=== PATIENT | male | born 1965 | race Caucasian/White ===

== ENCOUNTER 2020-09-10 15:21 | Emergency (ER) | payer SELFPAY ==
[~2020-09-10] VITALS: Ht 182.9 cm; Wt 90.7 kg
[2020-09-10] MEDS ORDERED: Thiamine HCl 100mg/ml 2 ml Inj IM STA (15:23)
--- NOTE | 2020-09-10 15:30 | NUR ---
ED Nurse Note: pt brought in to ER by ambulance from home due to possible ETOH and OD Benadryl. pt aao x0 and nonverbal but ta Addendum: 09/10/20 at 1553 by [email or web address] ED Nurse Note: pt brought in to ER by ambulance from home due to possible ETOH and OD Benadryl. pt aao x0 and nonverbal but open eyes and tracing. pt arrived with undigested food vomit around his mouth. vs stable and no SOB noted. iv and FC inserted. pt is lying down on Rt side to prevent possible aspiration. no skin issue noted. pt is in gown and on patient monitor.
--- NOTE | 2020-09-10 15:35 | Emergency Room Report ---
History of Present Illness General Chief Complaint: Alcohol Intoxication Source: EMS Present Illness HPI Family called paramedics because the patient was altered. He allegedly had been taking a lot of alcohol. There are some possibility of ingesting Benadryl also. There is no known history of suicidal ideation. Accu-Chek in the field was 350. Patient vomited on the way to the emergency department. No other history is available at this time. Allergies: Coded Allergies: UNABLE TO ASSESS (Unverified , 09/10/20) COVID-19 Screening Contact w/high risk pt: No Experienced COVID-19 symptoms?: No COVID-19 Testing performed INTEGRATION DIRECTOR: No Patient History Past Medical History: see triage record Social History: Reports: alcohol use Social History Narrative Has family, apparently [place]-speaking Reviewed Nursing Documentation: PMH: Agreed; PSxH: Agreed Review of Systems All Other Systems: limited Physical Exam Vital Signs Date Time Temp Pulse Resp B/P (MAP) Pulse Ox O2 Delivery O2 Flow Rate FiO2 09/10/20 15:10 98.1 95 20 151/96 (114) 94 Room Air Sp02 EP Interpretation: reviewed, abnormal - Interpreted as slightly low by me General Appearance: Stupor Eyes: bilateral eye PERRL, bilateral eye abnormal EOM - Nystagmus, bilateral eye Scleral Injection ENT: moist mucus membranes, other - Gag present Neck: supple Respiratory: lungs clear, normal breath sounds Cardiovascular #1: regular rate, rhythm, no edema Cardiovascular #2: 2+ radial (R) Gastrointestinal: non tender, soft, decreased bowel sounds Musculoskeletal: decreased range of motion - Moving all fours Neurologic: sensory intact, responsive - To pain Psychiatric: other - Stupor Skin: no rash, warm/dry Medical Decision Making Diagnostic Impression: Primary Impression: Acute alcoholic intoxication Qualified Codes: F10.929 - Alcohol use, unspecified with intoxication, unspecified ER Course Patient with altered mentation and history of alcohol consumption. Gag is present and therefore intubation is not needed at this time. We need to ascertain with patient aspirated. The patient needs to be monitored until he is sober and evaluated at that time regarding intent. Patient evaluated with EKG, chest x-ray and labs. Patient treated with IV hydration and IM thiamine. EKG NSR, normal EKG. CXR poor inspiration. Labs significant for BAL 200. Patient more responsive. 1630 Patient more awake and pulled IV. Wants bennett out. Still not answering questions. 1945 Patient reports to RN that there was no suicidal intent. Patient reluctant to give more history at this time. Patient given advice to follow-up with alcoholics anonymous. Also advised to follow-up with his own private physician. Patient improved and stable for outpatient observation and treatment. Laboratory Tests Test 09/10/20 15:35 White Blood Count 13.4 K/UL (4.8-10.8) H Red Blood Count 5.76 M/UL (4.70-6.10) Hemoglobin 16.3 G/DL (14.2-18.0) Hematocrit 49.9 % (42.0-52.0) Mean Corpuscular Volume 87 FL (80-99) Mean Corpuscular Hemoglobin 28.3 PG (27.0-31.0) Mean Corpuscular Hemoglobin Concent 32.7 G/DL (32.0-36.0) Red Cell Distribution Width 12.1 % (11.6-14.8) Platelet Count 252 K/UL (150-450) Mean Platelet Volume 8.1 FL (6.5-10.1) Neutrophils (%) (Auto) 73.0 % (45.0-75.0) Lymphocytes (%) (Auto) 21.0 % (20.0-45.0) Monocytes (%) (Auto) 3.8 % (1.0-10.0) Eosinophils (%) (Auto) 1.3 % (0.0-3.0) Basophils (%) (Auto) 1.0 % (0.0-2.0) Urine Color Pale yellow Urine Appearance Clear Urine pH 5 (4.5-8.0) Urine Specific [place] 1.010 (1.005-1.035) Urine Protein 2+ (NEGATIVE) H Urine Glucose (UA) 4+ (NEGATIVE) H Urine Ketones 3+ (NEGATIVE) H Urine Blood 1+ (NEGATIVE) H Urine Nitrite Negative (NEGATIVE) Urine Bilirubin Negative (NEGATIVE) Urine Urobilinogen Normal MG/DL (0.0-1.0) Urine Leukocyte Esterase Negative (NEGATIVE) Urine RBC 2-4 /HPF (0 - 0) H Urine WBC 0 /HPF (0 - 0) Urine Squamous Epithelial Cells Occasional /LPF Urine Bacteria Occasional /HPF (NONE) Sodium Level 140 MMOL/L (136-145) Potassium Level 3.7 MMOL/L (3.5-5.1) Chloride Level 100 MMOL/L (98-107) Carbon Dioxide Level 23 MMOL/L (21-32) Anion Gap 17 mmol/L (5-15) H Blood Urea Nitrogen 10 mg/dL (7-18) Creatinine 0.9 MG/DL (0.55-1.30) Estimated Glomerular Filtration Rate > 60 mL/min (>60) Glucose Level 290 MG/DL (74-106) H Calcium Level 8.9 MG/DL (8.5-10.1) Total Bilirubin 0.4 MG/DL (0.2-1.0) Aspartate Amino Transferase (AST) 18 U/L (15-37) Alanine Aminotransferase (ALT) 32 U/L (12-78) Alkaline Phosphatase 101 U/L (46-116) Total Creatine Kinase 102 U/L (26-308) Troponin I 0.000 ng/mL (0.000-0.056) Total Protein 8.0 G/DL (6.4-8.2) Albumin 4.3 G/DL (3.4-5.0) Globulin 3.7 g/dL Albumin/Globulin Ratio 1.2 (1.0-2.7) Salicylates Level 1.5 ug/mL (2.8-20) L Urine Opiates Screen Negative (NEGATIVE) Acetaminophen Level < 2 MCG/ML (10-30) L Urine Barbiturates Screen Negative (NEGATIVE) Phencyclidine (PCP) Screen Negative (NEGATIVE) Urine Amphetamines Screen Negative (NEGATIVE) Urine Benzodiazepines Screen Negative (NEGATIVE) Urine Cocaine Screen Negative (NEGATIVE) Urine Marijuana (THC) Screen Negative (NEGATIVE) Serum Alcohol 200 mg/dL EKG Diagnostic Results Rate: normal Rhythm: NSR ST Segments: no acute changes Rhythm Strip Diag. Results EP Interpretation: yes Rhythm: NSR, no PVC's, no ectopy Chest X-Ray Diagnostic Results Chest X-Ray Diagnostic Results : Chest X-Ray Ordered: Yes # of Views/Limited/Complete: 1 View Indication: Other EP Interpretation: Yes Interpretation: no consolidation, no effusion, no pneumothorax, other - Poor inspiration Impression: No acute disease Electronically Signed by: Electronically signed by Toribio Dorado MD Last Vital Signs Date Time Temp Pulse Resp B/P (MAP) Pulse Ox O2 Delivery O2 Flow Rate FiO2 09/10/20 21:22 98.0 80 16 142/76 99 Room Air Status: improved Disposition: HOME, SELF-CARE Condition: Improved Toribio Dorado MD Sep 10, 2020 15:35
[2020-09-10 15:40] VITALS: BP 144/87
[2020-09-10 15:56] LABS: APPEARANCE,URINE CLEAR; BILIRUBIN, URINE NEGATIVE (NEGATIVE); COLOR,URINE PALE YELLOW; GLUCOSE, URINE (UA) 4+ (NEGATIVE); KETONES,URINE 3+ (NEGATIVE); LEUKOCYTE ESTERASE ,URINE NEGATIVE (NEGATIVE); NITRITE,URINE NEGATIVE (NEGATIVE); PH,URINE 5 (4.5-8.0); PROTEIN,URINE 2+ (NEGATIVE); UROBILINOGEN,URINE NORMAL MG/DL (0.0-1.0)
--- NOTE | 2020-09-10 16:01 | NUR ---
ED Nurse Note: changed pt's position to Rt side.
[2020-09-10 16:02] LABS: ANION GAP 17 mmol/L (5-15); BLOOD UREA NITROGEN 10 mg/dL (7-18); CALCIUM 8.9 MG/DL (8.5-10.1); CARBON DIOXIDE 23 MMOL/L (21-32); CHLORIDE 100 MMOL/L (98-107); CREATININE 0.9 MG/DL (0.55-1.30); POTASSIUM 3.7 MMOL/L (3.5-5.1); SODIUM 140 MMOL/L (136-145)
[2020-09-10 16:06] LABS: ALANINE AMINOTRANSFERASE 32 U/L (12-78); ALBUMIN 4.3 G/DL (3.4-5.0); ALBUMIN/GLOBULIN RATIO 1.2 (1.0-2.7); ALKALINE PHOSPHATASE 101 U/L (46-116); ASPARTATE AMINO TRANSFERASE 18 U/L (15-37); BILIRUBIN,TOTAL 0.4 MG/DL (0.2-1.0); CREATINE KINASE 102 U/L (26-308)
[2020-09-10 16:08] LABS: EOSINOPHILS % (AUTO) 1.3 % (0.0-3.0); HEMATOCRIT 49.9 % (42.0-52.0); HEMOGLOBIN 16.3 G/DL (14.2-18.0); MEAN CORPUSCULAR VOLUME 87 FL (80-99); MONOCYTES % (AUTO) 3.8 % (1.0-10.0); PLATELET COUNT 252 K/UL (150-450); RED BLOOD COUNT 5.76 M/UL (4.70-6.10); RED CELL DISTRIBUTION WIDTH 12.1 % (11.6-14.8); WHITE BLOOD COUNT 13.4 K/UL (4.8-10.8)
--- NOTE | 2020-09-10 16:34 | NUR ---
ED Nurse Note: x-ray at bedside.
--- NOTE | 2020-09-10 17:06 | Diagnostic Imaging Report ---
Indication: Shortness of breath Technique: One view of the chest Comparison: none Findings: Lungs and pleural spaces are clear. Heart size is normal. Impression: No acute process
[2020-09-10 17:40] VITALS: BP 113/67
--- NOTE | 2020-09-10 18:08 | NUR ---
ED Nurse Note: pt sleeping on Rt later side soundly in bed.
--- NOTE | 2020-09-10 19:02 | NUR ---
HAND-OFF: Report given to LANE Rodriguez. no orders to carry. awaiting for pt to be sober.
--- NOTE | 2020-09-10 19:16 | NUR ---
ED Nurse Note: Received report from Manny Higginbotham, pt currently resting with no complaints at this time. No distress noted. Assumed care of pt.
[2020-09-10 19:17] VITALS: BP 145/81
--- NOTE | 2020-09-10 19:40 | NUR ---
ED Nurse Note: Pt awake and pulling off monitor and blood pressure cuff. Pt also pulled out IV. Have attempted to stop him from pulling these things, but pt is not listening. Advised Dr. Dorado. Dr. Dorado reports it is fine the IV is out, and he will see pt shortly. Pt reports he is cold and warm blankets have been provided.
--- NOTE | 2020-09-10 19:52 | NUR ---
ED Nurse Note: Pt reports he has to pee, advised pt he has urinary catheter in. Pt still complaining. Dr. Daveaid to remove catheter. Catheter removed, pt attempting to use urinal. Pt tolerated procedure well.
--- NOTE | 2020-09-10 20:39 | NUR ---
ED Nurse Note: LANE Tsai spoke with pt. I witnessed conversation. Pt advised risa multiple times that he does not want to hurt himself and that he would like to go home. Pt provided with food and drink. Dr. Ave chin.
[2020-09-10 21:22] VITALS: BP 142/76
--- NOTE | 2020-09-10 21:25 | NUR ---
ED Nurse Note: Pt cleared by health care Provider for discharge. D/C instructions/prescription was given and explained to pt and family member and they verbalized understanding of teachings. All medical devices such as ID band and bennett catheter removed. Pt is AAO x4, ambulatory and left with all personal belongings. Family member took pt home.
== END 2020-09-10 21:26 | disposition home or self-care (01) ==
LOC: EDBD 15:21 → EMR 16:11
DX: F10.929 Alcohol use, unspecified with intoxication, unspecified (principal)
CPT/HCPCS: 36415; 71045; 80053; 80307; 81003; 82550; 84484; 85025; 93005; 96360; 96372; 99284; G0480; J7030